=== PATIENT | female | born 1995 | race Caucasian/White ===

== ENCOUNTER 2024-11-25 03:49 | Inpatient (IN) ==
[2024-11-25] MEDS ORDERED: CALCIUM CARBONATE 500 MG CHEWABLE TAB PO PRN (04:30)
[2024-11-25] MEDS ORDERED: OXYTOCIN 30 UNITS/NSS 30 UNITS/500 ML BAG IV PRN ×2 (04:30→12:10)
[2024-11-25] MEDS ORDERED: ACETAMINOPHEN 325 MG TAB PO PRN ×2 (04:30→12:10)
[2024-11-25] MEDS ORDERED: ePHEDrine sulfate 50 MG/ML AMP ONE (04:37)
[2024-11-25] MEDS ORDERED: fentANYL 2 MCG/ML BUPIVacaine 0.125%-NSS 100ML BAG ONE (04:37)
[2024-11-25] MEDS ORDERED: fentaNYL citrate PF 100 MCG/2 ML VIAL ONE (04:37)
[2024-11-25] MEDS ORDERED: LIDOCAINE 2%/EPINEPHRINE 1:200,000 20 ML PF ONE (04:38)
[2024-11-25] MEDS: LACTATED RINGER'S 1,000 ML IV PRN (04:46)
[2024-11-25 05:30] LABS: Hematocrit (blood only) 35.4 % (37.0-47.0); Hemoglobin 12.8 g/dl (12.0-16.0); Mean Corpuscular Hemoglobin 32.2 pg (25.0-34.0); Mean Corpuscular Hgb Conc 36.2 g/dL (32.0-36.0); Mean Corpuscular Volume 89.2 fL (80.0-100.0); Mean Platelet Volume 10.1 fL (9.4-12.4); Platelet Count 206 K/uL (130-400); RDW Coefficient of Variation 11.9 % (11.5-14.5); RDW Standard Deviation 38.8 fL (36.4-46.3); Red Blood Count 3.97 M/uL (4.20-5.40); White Blood Count 13.17 K/ul (4.8-10.8)
[2024-11-25] MEDS ORDERED: LIDOCAINE 2% MPF LOCAL 5 ML VIAL EPI PRN (06:06)
[2024-11-25] MEDS ORDERED: diphenhydrAMINE 50 MG/ML VIAL IV PRN (06:06)
[2024-11-25] MEDS ORDERED: fentaNYL citrate PF 100 MCG/2 ML VIAL EPI STA (06:06)
[2024-11-25] MEDS ORDERED: ROPIVACAINE 0.5% PF 5 MG/ML 20 ML VIAL EPI PRN (06:06)
[2024-11-25] MEDS ORDERED: BUPIVACAINE 0.25% PF 30 ML VIAL EPI STA (06:06)
[2024-11-25] MEDS ORDERED: SODIUM CHLORIDE 0.9% PF INJ 10 ML VIAL EPI PRN (06:06)
[2024-11-25] MEDS ORDERED: BUPIVACAINE 0.25% PF 30 ML VIAL EPI PRN (06:06)
[2024-11-25] MEDS ORDERED: NALOXONE HCL 1 MG in SODIUM CHLORIDE 0.9% 1,000 ML IV PRN (06:06)
[2024-11-25] MEDS ORDERED: SODIUM CHLORIDE 0.9% PF INJ 10 ML VIAL EPI STA (06:06)
[2024-11-25] MEDS ORDERED: ePHEDrine sulfate 50 MG/ML AMP IV PRN (06:06)
[2024-11-25] MEDS ORDERED: LIDOCAINE 2%/EPINEPHRINE 1:200,000 20 ML PF EPI STA (06:06)
[2024-11-25] MEDS ORDERED: NALOXONE HCL 0.4 MG/1 ML VIAL/CARP IV PRN (06:06)
[2024-11-25] MEDS ORDERED: NALBUPHINE HCL INJ 10 MG/ML AMP IV PRN (06:06)
[2024-11-25] MEDS ORDERED: ONDANSETRON INJ 2 MG/ML 2 ML VIAL IV PRN (06:06)
[2024-11-25] MEDS ORDERED: fentaNYL citrate PF 100 MCG/2 ML VIAL EPI PRN (06:06)
--- NOTE | 2024-11-25 06:08 | Anesthesiology Consultation ---
Date of Service November 25, 2024 Assessment & Plan Chart Review Chart Review: Patient NOT seen in Pre Admission Testing and Acceptable Risk for Labor Epidural Consults Requested none ASA ASA2 Proposed Anesthesia Anesthesia Type: Labor Epidural Risk / Benefits Reviewed With: PT / POA / Parent / Guardian, Accepts Plan and Informed Consent Obtained History Height/Weight Height: 5 ft 4 in Weight: 67.585 kg Allergies Allergy/AdvReac Type Severity Reaction Status Date / Time No Known Allergies Allergy Verified 11/19/24 11:21 Medications Home Medications Medication Instructions Recorded Confirmed Last Taken PNV no.[id number] PO 04/22/24 11/19/24 Unknown [ Gummies] omeprazole [Prilosec] PO 10/14/24 11/19/24 Unknown Active Medications Generic Name Dose Route Start Last Admin Trade Name Freq PRN Reason Stop Dose Admin Lactated Ringer's 1,000 mls @ 125 mls/hr 11/25/24 04:30 11/25/24 05:15 Lr IV 11/26/24 04:29 125 mls/hr .Q8H PRN Infusion L&D Protocol Protocol Past Medical History Medical History Varicella vaccination CHIDI I (cervical intraepithelial neoplasia I) ASCUS with positive high risk HPV COVID-19 (09/2022) Exercise / Class Metabolic Activity II 4-5 Yardwork/Stairs/Walk up hill Past Family History Family History Grandfather (Paternal) Colorectal cancer Mother Hypertension Grandmother (Maternal) Hypertension Father No problems noted. Denies family history of Ovarian cancer Breast cancer Past Surgical History Surgical History Status post colposcopy H/O wrist surgery Devine teeth extracted Past Anesthesia History No Hx of Anesthesia Complications and No Family Hx of Anesthesia Complications History of PONV No Hx of PONV and No Hx of Motion Sickness Social History Smoking Status: Never smoker Do You Dip or Chew Tobacco: No Hx Alcohol Use: Yes Alcohol type: wine and hard liquor Hx Substance Use: No Physical Exam Vital Signs Last Vital Signs Temp 36.7 C 11/25/24 04:07 Pulse 77 11/25/24 04:10 Resp 20 11/25/24 04:07 BP 134/81 11/25/24 04:10 ENMT Mouth: no dentition abnormality Thyromental Distance: > or= 3.5 Finger Breadths Mallampati Class: II Neck normal visual inspection Respiratory normal respiratory effort Auscultation: lungs clear to auscultation bilaterally Cardiovascular Rate/Rhythm: regular rate and regular rhythm Psychiatric Orientation: alert Testing Laboratory Results 11/25/24 05:16
[2024-11-25] MEDS: fentANYL 2 MCG/ML BUPIVacaine 0.125%-NSS 100ML BAG EPI PRN (06:17)
[2024-11-25] MEDS: BUPIVACAINE 0.25% PF 30 ML VIAL ONE (06:20)
[2024-11-25] MEDS: SODIUM CHLORIDE 0.9% PF INJ 10 ML VIAL ONE (06:20)
--- NOTE | 2024-11-25 07:16 | History & Physical Report ---
Date of Service November 25, 2024 Assessment & Plan (1) Supervision of normal first : Plan: Tana is a 29-year-old currently at 38 weeks 2 days gestational age presents with contractions and leakage of fluid. SROM in early labor 1. Fetus: Category 1 tracing 2. Labor: SROM, will augment as needed 3. GBS negative 4. Vital normal (2) Need for rhogam due to Rh negative mother: (3) SROM (spontaneous rupture of membranes): (4) Normal labor: Admission and Anticipated Discharge Date Admission Date: November 25, 2024 History of Present Illness Primary Care Provider: NO PCP Tana is a 29-year-old currently at 38 weeks 2 days gestational age presents with contractions and leakage of fluid. Reports light spotting and normal movement. complicated by Rh- maternal status. OB Labs: Blood Type A Negative 04/30/24 Antibody Screen NEGATIVE 09/16/24 Hgb 12.9 g/dl (12.0-16.0) 09/16/24 Hct 38.6 % (37.0-47.0) 09/16/24 MCV 88.0 fL (80.0-100.0) 04/30/24 Plt Count 296 K/uL (130-400) 04/30/24 Rubella IgG Antibody Immune (Immune) 04/30/24 Treponema pallidum Ab Negative (Negative) 09/16/24 Hep Bs Antigen Negative (Negative) 04/30/24 Hepatitis C Antibody Negative (Negative) 04/30/24 HIV 1&2 Ab/P24 Ag 4thGn Negative (Negative) 04/30/24 Glucose 1 Hr 50 gm 120 mg/dl (70-130) 09/16/24 Maternal Serum AFP 54.4 ng/mL 06/25/24 OB Optional Labs: Chlamydia trachomatis RNA Not Detected (NotDetected) 04/30/24 Neisseria gonorrhoeae RNA Not Detected (NotDetected) 04/30/24 Alpha Fetoprotein Triple Screen SEE NOTE 06/25/24 Labs Reviewed: Horizon 14-negative--mln cfdna-low risk--mln afp neg--akh Allergies Allergy/AdvReac Type Severity Reaction Status Date / Time No Known Allergies Allergy Verified 11/19/24 11:21 Home Medications Medication Instructions Recorded Confirmed Type PNV no.[id number] PO 04/22/24 11/19/24 History [ Gummies] omeprazole [Prilosec] PO 10/14/24 11/19/24 History Patient History Medical History Varicella vaccination CHIDI I (cervical intraepithelial neoplasia I) ASCUS with positive high risk HPV COVID-19 (09/2022) Surgical History Status post colposcopy H/O wrist surgery Jessie teeth extracted Family History Grandfather (Paternal) Colorectal cancer Mother Hypertension Grandmother (Maternal) Hypertension Father No problems noted. Denies family history of Ovarian cancer Breast cancer Social History Smoking Status: Never smoker Second Hand Exposure: No; Do You Dip or Chew Tobacco: No; Hx Alcohol Use: Yes Alcohol type: wine and hard liquor Alcohol Intake Frequency: 2-4 x/Month Hx Substance Use: No Preferred Language: Lebanese Communication Ability: Effective Visual Impairment: No Limitations Hearing Ability: Normal Acetylene Torch Solderer Required: No Beliefs That Will Affect Care: None marital status: marital status details: Evens Olivia (39) [phone] Current Living Situation: Spouse Current Living Situation Comment: lives with spouse, cats-has litter robot current occupational status: employed 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[employer] How many Children do You have: 0 Other Information That Helps Us Care for You: No Feels Safe at Home: Yes Safety Concerns: Feels Safe At This Time Childhood Exposure to Second-Hand Smoke: No Diet: regular caffeine: Yes during the past year weight has: remained stable Dental Care, Regularly: Yes Physical Activity Frequency: Daily Physical Activity Frequency Comment: yoga, 20 minutes Seatbelt Use: always Sunscreen Use: Yes Assistive Devices: None Physical Exam Genitourinary: OB Exam Abdomen: + vertex Manual OB Exam: + cervical dilation (2.5) and + amniotic fluid clear OB Exam Monitor Tracing: + external FHT monitor used, + external uterine monitor used, + category I and + normal FHT variability Exam per nurse. Patient grossly ruptured with positive nitrazine. Results & Data Vital Signs (Past 12 Hours) Vital Signs Temp Pulse Resp BP Pulse Ox 11/25/24 07:05 100 H 100 11/25/24 07:00 102 H 100 11/25/24 06:56 100 H 125/67 11/25/24 06:55 91 H 98 11/25/24 06:50 87 107/76 98 11/25/24 06:45 91 H 20 114/69 98 11/25/24 06:42 86 125/59 L 11/25/24 06:40 95 H 20 99 11/25/24 06:35 98 11/25/24 06:35 82 11/25/24 06:35 85 20 128/59 L 11/25/24 06:30 101 H 18 100 11/25/24 06:28 99 H 120/61 11/25/24 06:26 94 H 124/66 11/25/24 06:25 18 11/25/24 06:25 88 18 98 11/25/24 06:23 85 117/71 11/25/24 06:22 36.9 C 11/25/24 06:21 98 H 125/74 11/25/24 06:20 99 11/25/24 06:20 96 H 11/25/24 06:20 92 H 120/73 11/25/24 06:18 101 H 20 131/84 11/25/24 06:15 92 H 98 11/25/24 06:10 117 H 98 11/25/24 04:10 77 134/81 11/25/24 04:07 36.7 C 20 Coding Level of Care Code None Diagnoses Encounter for supervision of normal first in third trimester Z34.03 Trimester: third trimester Need for rhogam due to Rh negative mother Z29.13 SROM (spontaneous rupture of membranes) Normal labor O80; Z37.9 (1) Supervision of normal first Trimester: third trimester Qualified Code(s): Z34.03 - Encounter for supervision of normal first , third trimester
[2024-11-25] MEDS: OXYTOCIN 30 UNITS/NSS 30 UNITS/500 ML BAG IV PRN (10:36)
[2024-11-25] MEDS: LIDOCAINE 1% LOCAL 20 ML VIAL INFIL PRN (11:30)
[2024-11-25] MEDS ORDERED: DIPHTHER/TETAN/PERTUS Vaccine (Tdap, Adol/Adult) 0.5mL IM ONE (12:10)
[2024-11-25] MEDS ORDERED: HYDROCORTISONE ACETATE 25 MG SUPP PR PRN (12:10)
[2024-11-25] MEDS ORDERED: bisacodyL 10 MG SUPP PR PRN (12:10)
--- NOTE | 2024-11-25 13:06 | Anesthesia Procedure Note ---
Date of Service November 25, 2024 Anesthesia Post Epidural Note Vital Signs Vital Signs: Temp Pulse Resp BP Pulse Ox 37.0 C 82 16 113/65 91 11/25/24 11:00 11/25/24 12:59 11/25/24 12:45 11/25/24 12:59 11/25/24 11:16 Pain Intensity Bilateral Abdomen: Pain Intensity: 2 Notes Mental Status: alert / awake / arousable and participated in evaluation Nausea / Vomiting: adequately controlled Pain: adequately controlled Airway Patency, RR, SpO2: stable & adequate BP & HR: stable & adequate Hydration State: stable & adequate Neuraxial Anesthesia: was administered and sensory block resolved Anesthetic Complications: no major complications apparent and Pt Satisfied with anesthetic care Epidural: Removed without complications and With tip intact
--- NOTE | 2024-11-25 15:27 | Delivery Summary ---
Vaginal Delivery Summary Date of Service November 25, 2024 Vaginal Delivery Summary and 2nd Degree LAC Patient is a 29-year-old 1 P0 female EDC 12[birth year]07/[birth year]24 who presents with spontaneous rupture membranes approximately 2:30 AM. She went into spontaneous labor and progressed to complete. Contractions at this point became more spaced out and Pitocin augmentation was begun. She then pushed effectively over intact perineum for delivery of a viable female . After the head delivered and the anterior shoulder, the posterior hand presented and was delivered. The rest the infant delivered without difficulty was placed on mother's abdomen for further attention and drying. She was vigorous crying and moving all 4 limbs. After 1 minute, the cord was clamped and cut. After cord blood was obtained, the placenta was expressed intact with a three-vessel cord. bleeding was controlled with dilute Pitocin and fundal massage. A second-degree perineal laceration was repaired with 2-0 chromic in usual fashion. QBL was 160 mL. Mother and were doing well after delivery. [facility] Vaginal Delivery Charge Delivery Type Details: and 2nd Degree LAC
[2024-11-25] MEDS: BENZOCAINE 20% SPRY 85 APPLN/85 GM CAN EXT PRN (19:46)
[2024-11-25] MEDS: IBUPROFEN 600 MG TAB PO PRN (19:46)
[2024-11-25] MEDS: DOCUSATE SODIUM 100 MG CAP PO SCH (21:02)
[2024-11-26] MEDS: IBUPROFEN 200 MG/10 ML UDC PO PRN (00:27)
--- NOTE | 2024-11-26 06:27 | Obstetrical Progress Note ---
Date of Service November 26, 2024 Assessment & Plan (1) Need for rhogam due to Rh negative mother: (2) Encounter for care and examination after delivery: Plan Pt is doing well - pain control with tylenol, ibuprofen - Encourage ambulation and breast feeding - Likely discharge to home / Admission and Anticipated Discharge Date Admission Date: November 25, 2024 Supervising Physician Co-Signing Physician Notes Resident Physician Supervision Note: I interviewed and examined the patient. Discussed with Dr. Romano and agree with findings and plan as documented in the note. Any exceptions or clarifications are listed here: [None] Documented By: Evette Goldman MD, FACOG Subjective Pt is 29 yo post- day 1 s/p at 38w2d. Pt is Rh neg. Ambulation:In and out of room Voiding:voiding normally Passing gas: yes BM: no Diet tolerance:regular diet Lochia:bloody, no clots Feeding type: breast Current pain level: 0-3 /10 improved with ibuprofen Resting comfortably this morning in NAD. Denies BUSTILLO, CP, SOB, N/V/D, LE pain/swelling. Review of Systems Review of Systems: As per HPI Physical Exam Constitutional: WD/WN, vitals as above Respiratory: normal respiratory effort, lungs clear to auscultation Cardiovascular: RRR, no murmur, no edema Gastrointestinal (Abdomen): normal bowel sounds, soft, nontender, no hepatosplenomegaly Uterine fundus firm and at level of umbilicus Neurologic: PERRL, EOMI, accommodation nl, no face palsy, no dysarthria Moving all 4 extremities on command Psychiatric: A+Ox3, euthymic affect Results & Data Vital Signs (Past 12 Hours) Vital Signs Temp Pulse Resp BP Pulse Ox O2 Del Method 11/26/24 03:25 36.5 C 68 20 124/82 98 Room Air 11/25/24 23:40 36.7 C 79 20 115/75 99 Room Air 11/25/24 19:30 36.5 C 90 18 125/82 99 Room Air 11/25/24 19:30 Room Air Resident Activity Tracking Resident Involvement: Resident Care Provided Care Provided: Adult Hospital Medicine
[2024-11-26 06:48] LABS: Hematocrit (blood only) 30.4 % (37.0-47.0); Hemoglobin 10.4 g/dl (12.0-16.0); Mean Corpuscular Hemoglobin 31.7 pg (25.0-34.0); Mean Corpuscular Hgb Conc 34.2 g/dL (32.0-36.0); Mean Corpuscular Volume 92.7 fL (80.0-100.0); Mean Platelet Volume 10.2 fL (9.4-12.4); Platelet Count 168 K/uL (130-400); RDW Coefficient of Variation 12.3 % (11.5-14.5); RDW Standard Deviation 41.5 fL (36.4-46.3); Red Blood Count 3.28 M/uL (4.20-5.40); White Blood Count 14.45 K/ul (4.8-10.8)
[2024-11-26] MEDS: PRENATAL VITAMIN 1 TAB PO SCH (10:21)
[2024-11-26] MEDS ORDERED: bisacodyL 5 MG TABEC PO SCH (20:00)
[2024-11-26 23:41] VITALS: RESP 18
--- NOTE | 2024-11-27 06:24 | Obstetrical Progress Note ---
Date of Service November 27, 2024 Assessment & Plan (1) Encounter for care and examination after delivery: (2) Need for rhogam due to Rh negative mother: Plan Pt is doing well - pain control with tylenol, ibuprofen - Encourage ambulation and breast feeding - discharge home today - Pt to follow up with Dr. Castro in 6 weeks Admission and Anticipated Discharge Date Admission Date: November 25, 2024 Supervising Physician Co-Signing Physician Notes Resident Physician Supervision Note: I was present with Dr. Romano during the history and exam. I discussed the case with the resident and agree with the findings and plan as documented in the note. Any exceptions or clarifications are listed here: tearful this am due to status and support given. eating, voiding, ambulating. dec bleeding. breast feeding but also having to supplement. abd soft ff 2 down nt, ext nt calves. ppd #2 s/p . will dc home, instructions reviewed. f/u 6wk pp. Documented By: Maryann Bright MD, FACOG Subjective Pt is 29 yo post- day 2 s/p at 38w2d. Pt is Rh neg. Ambulation:In and out of room Voiding:voiding normally Passing gas: yes BM: no Diet tolerance:regular diet Lochia:bloody, no clots Feeding type: breast Current pain level: 1-3 /10 improved with ibuprofen Resting comfortably this morning in NAD. Denies BUSTILLO, CP, SOB, N/V/D, LE pain/swelling. Review of Systems Review of Systems: As per HPI Physical Exam Constitutional: WD/WN, vitals as above Respiratory: normal respiratory effort, lungs clear to auscultation Cardiovascular: RRR, no murmur, no edema Gastrointestinal (Abdomen): normal bowel sounds, soft, nontender, no hepatosplenomegaly Uterine fundus is at 2cm below level of umbilicus Neurologic: PERRL, EOMI, accommodation nl, no face palsy, no dysarthria Psychiatric: A+Ox3, euthymic affect Results & Data Vital Signs (Past 12 Hours) Vital Signs Temp Pulse Resp BP Pulse Ox O2 Del Method 11/26/24 23:05 36.8 C 76 18 112/74 98 Room Air 11/26/24 20:05 36.6 C 82 18 124/78 98 Room Air Resident Activity Tracking Resident Involvement: Resident Care Provided Care Provided: Adult Hospital Medicine
[2024-11-27 06:38] LABS: Hematocrit (blood only) 30.7 % (37.0-47.0); Hemoglobin 10.6 g/dl (12.0-16.0)
[2024-11-27 08:03] VITALS: O2SAT 97
[2024-11-27 11:53] VITALS: BP 121/80; PULSE 74; TEMP 98.1
== END 2024-11-27 15:18 | disposition home or self-care (01) | DRG 807 ==
LOC: OPB 03:49 → 4S1 03:54 → 4E2 14:59